=== PATIENT | female | born 1960 | race Caucasian/White ===

== ENCOUNTER 2022-02-15 13:45 | Inpatient (IN) ==
[2022-02-15] MEDS ORDERED: Iopamidol - 370 500 ML MLS IVP ONE (14:34)
[2022-02-15 15:48] LABS: Hemoglobin 12.3 g/dL (11.5-15.4); Mean Corpuscular Hemoglobin 26.7 pg (28.0-33.3); Mean Corpuscular Volume 88.9 fL (83.0-100.0); Mean Platelet Volume 10.3 fL (9.4-12.4); Nucleated Red Blood Cells 0.5 /100 WBC (0); Platelet Count 346 K/mcL (140-400); Red Blood Count 4.61 M/mcL (3.82-4.97); Red Cell Distribution Width 14.4 % (11.5-14.5); White Blood Count 6.5 K/mcL (4.3-11.1)
[2022-02-15 15:59] LABS: Alanine Aminotransferase 38 Units/L (7-52); Albumin 4.1 g/dL (3.5-5.7); Albumin/Globulin Ratio 1.2 (1.1-2.2); Alkaline Phosphatase 82 Units/L (34-104); Aspartate Amino Transferase 27 Units/L (13-39); BUN/Creatinine Ratio 19 (6-26); Bilirubin,Total 0.4 mg/dL (0.3-1.0); Blood Urea Nitrogen 14 mg/dL (8-23); Calcium 9.6 mg/dL (8.6-10.3); Carbon Dioxide 27 mEq/L (23-29); Chloride 106 mEq/L (98-107); Globulin 3.4 g/dL (2.4-3.5); Glucose 97 mg/dL (70-105); Osmolality,Calculated 290 (280-300); Sodium 140 mEq/L (136-145); Total Protein 7.5 g/dL (6.4-8.9)
[2022-02-15 16:34] LABS: Monocytes # 0.7 K/mcL (0.0-1.3); Neutrophils # 2.6 K/mcL (1.6-8.9)
[2022-02-15] MEDS ORDERED: Vancomycin 1,500 MG/265 ML IV.SOLN IVPB ONE (17:19)
[2022-02-15] MEDS ORDERED: Piperacillin/Tazobactam 3.375 GM in 0.9 % Sodium Chloride Mini Bag 100 ML IVPB ONE (17:19)
[2022-02-15] MEDS ORDERED: Ipratropium/Albuterol Neb 3 ML IH PRN (17:57)
[2022-02-15] MEDS ORDERED: Ondansetron 4 MG/2 ML VIAL IVP PRN (17:58)
[2022-02-15] MEDS ORDERED: Naloxone 0.4 MG/ML INJ IVP PRN (17:58)
[2022-02-16] MEDS: Piperacillin/Tazobactam 3.375 GM in 0.9 % Sodium Chloride Mini Bag 100 ML IVPB SCH ×3 (00:46→22:32)
[2022-02-16 03:49] LABS: Hemoglobin 10.9 g/dL (11.5-15.4); Mean Corpuscular HGB Conc 31.1 g/dL (31.6-35.5); Mean Corpuscular Hemoglobin 27.5 pg (28.0-33.3); Mean Corpuscular Volume 88.4 fL (83.0-100.0); Nucleated Red Blood Cells 0.6 /100 WBC (0); Platelet Count 297 K/mcL (140-400); Red Blood Count 3.96 M/mcL (3.82-4.97); Red Cell Distribution Width 14.5 % (11.5-14.5); White Blood Count 7.2 K/mcL (4.3-11.1)
[2022-02-16 03:58] LABS: Calcium 8.8 mg/dL (8.6-10.3); Magnesium 2.1 mg/dL (1.6-2.6); Potassium 3.9 mEq/L (3.5-5.1)
[2022-02-16 05:19] LABS: Lymphocytes # 1.2 K/mcL (0.6-4.6); Monocytes # 0.9 K/mcL (0.0-1.3); Neutrophils # 5.2 K/mcL (1.6-8.9)
[2022-02-16 05:20] LABS: Platelet Estimate Normal (Normal)
[2022-02-16] MEDS ORDERED: Vancomycin 1,500 MG/265 ML IV.SOLN IVPB SCH (06:00)
[2022-02-16] MEDS: *HR* Heparin 5,000 UNIT/ML VIAL SQ SCH ×3 (06:12→22:32)
[2022-02-16] MEDS ORDERED: Sacubitril/Valsartan 49/51 MG 1 TABLET PO SCH (09:00)
[2022-02-16] MEDS ORDERED: Metoprolol XL (24 HR) Succ 25 MG TAB.ER.24H PO SCH ×2 (09:00)
[2022-02-16] MEDS ORDERED: Aspirin 81 MG TAB.CHEW PO SCH (09:00)
[2022-02-16] MEDS ORDERED: Spironolactone 25 MG TABLET PO SCH (09:30)
[2022-02-16] MEDS ORDERED: Lidocaine -MPF 2% 5 ML VIAL ONE (16:47)
[2022-02-16] MEDS ORDERED: *HR* FentaNYL (PF) 100 MCG/2 ML VIAL ONE (16:50)
[2022-02-16] MEDS ORDERED: Ketamine HCL *QUVA* 50mg (1mL) SYRINGE ONE (17:20)
[2022-02-16] MEDS ORDERED: Naloxone 0.4 MG/ML INJ IVP PRN (18:03)
[2022-02-16] MEDS ORDERED: Ondansetron 4 MG/2 ML VIAL IVP PRN (18:03)
[2022-02-16] MEDS ORDERED: Ipratropium/Albuterol Neb 3 ML IH PRN (18:03)
[2022-02-16] MEDS: *HR* OxyCODONE/APAP 5/325 TABLET PO PRN ×2 (18:15→22:41)
[2022-02-16] MEDS: Metoprolol XL (24 HR) Succ 25 MG TAB.ER.24H PO SCH (20:12)
[2022-02-16] MEDS: Sacubitril/Valsartan 49/51 MG 1 TABLET PO SCH (20:12)
[2022-02-16] MEDS ORDERED: Piperacillin/Tazobactam 3.375 GM in 0.9 % Sodium Chloride Mini Bag 100 ML IVPB SCH (22:00)
[2022-02-17] MEDS: *HR* OxyCODONE/APAP 5/325 TABLET PO PRN ×3 (04:32→16:20)
[2022-02-17] MEDS: Piperacillin/Tazobactam 3.375 GM in 0.9 % Sodium Chloride Mini Bag 100 ML IVPB SCH ×3 (05:52→22:30)
[2022-02-17] MEDS: *HR* Heparin 5,000 UNIT/ML VIAL SQ SCH ×3 (05:53→22:31)
[2022-02-17] MEDS: Vancomycin 1,500 MG/265 ML IV.SOLN IVPB SCH (05:53)
[2022-02-17] MEDS ORDERED: Vancomycin 1,500 MG/265 ML IV.SOLN IVPB SCH (06:00)
[2022-02-17] MEDS: Spironolactone 25 MG TABLET PO SCH (08:41)
[2022-02-17] MEDS: Sacubitril/Valsartan 49/51 MG 1 TABLET PO SCH ×2 (08:42→19:58)
[2022-02-17] MEDS: Aspirin 81 MG TAB.CHEW PO SCH (08:42)
[2022-02-17] MEDS: Metoprolol XL (24 HR) Succ 25 MG TAB.ER.24H PO SCH ×2 (08:42→19:59)
[2022-02-17 09:25] LABS: Hematocrit 36.3 % (35.3-44.9); Hemoglobin 11.1 g/dL (11.5-15.4); Mean Corpuscular HGB Conc 30.6 g/dL (31.6-35.5); Mean Corpuscular Volume 88.3 fL (83.0-100.0); Mean Platelet Volume 10.1 fL (9.4-12.4); Nucleated Red Blood Cells 0.2 /100 WBC (0); Platelet Count 274 K/mcL (140-400); Red Blood Count 4.11 M/mcL (3.82-4.97); Red Cell Distribution Width 14.5 % (11.5-14.5); White Blood Count 8.8 K/mcL (4.3-11.1)
[2022-02-17 09:39] LABS: Calcium 9.2 mg/dL (8.6-10.3); Potassium 4.4 mEq/L (3.5-5.1)
[2022-02-17 10:38] LABS: Lymphocytes # 1.6 K/mcL (0.6-4.6); Monocytes # 1.8 K/mcL (0.0-1.3); Neutrophils # 4.9 K/mcL (1.6-8.9); Platelet Estimate Normal (Normal)
[2022-02-18] MEDS: Piperacillin/Tazobactam 3.375 GM in 0.9 % Sodium Chloride Mini Bag 100 ML IVPB SCH ×3 (06:22→20:30)
[2022-02-18] MEDS: *HR* Heparin 5,000 UNIT/ML VIAL SQ SCH ×3 (06:22→20:38)
[2022-02-18] MEDS: Vancomycin 1,500 MG/265 ML IV.SOLN IVPB SCH (06:29)
[2022-02-18] MEDS ORDERED: Vancomycin 1,750 MG/517.5 ML IV.SOLN IVPB SCH (08:00)
[2022-02-18] MEDS: Spironolactone 25 MG TABLET PO SCH (08:08)
[2022-02-18] MEDS: Sacubitril/Valsartan 49/51 MG 1 TABLET PO SCH ×2 (08:08→20:25)
[2022-02-18] MEDS: Metoprolol XL (24 HR) Succ 25 MG TAB.ER.24H PO SCH ×2 (08:08→20:29)
[2022-02-18] MEDS: Aspirin 81 MG TAB.CHEW PO SCH (08:08)
[2022-02-18] MEDS: Lactobacillus 1 EACH CAP.SPRINK PO SCH ×2 (11:36→20:25)
[2022-02-18] MEDS: *HR* OxyCODONE/APAP 5/325 TABLET PO PRN ×2 (11:36→16:58)
[2022-02-19] MEDS: *HR* OxyCODONE/APAP 5/325 TABLET PO PRN ×2 (04:57→12:16)
[2022-02-19] MEDS: *HR* Heparin 5,000 UNIT/ML VIAL SQ SCH (06:16)
[2022-02-19] MEDS: Piperacillin/Tazobactam 3.375 GM in 0.9 % Sodium Chloride Mini Bag 100 ML IVPB SCH (06:19)
[2022-02-19] MEDS ORDERED: Vancomycin 2,000 MG/520 ML IV.SOLN IVPB SCH (08:00)
[2022-02-19] MEDS: Spironolactone 25 MG TABLET PO SCH (08:05)
[2022-02-19] MEDS: Metoprolol XL (24 HR) Succ 25 MG TAB.ER.24H PO SCH (08:05)
[2022-02-19] MEDS: Lactobacillus 1 EACH CAP.SPRINK PO SCH (08:05)
[2022-02-19] MEDS: Aspirin 81 MG TAB.CHEW PO SCH (08:05)
[2022-02-19] MEDS: Sacubitril/Valsartan 49/51 MG 1 TABLET PO SCH (08:06)
[2022-02-19 11:15] VITALS: BP 96/62; PULSE 81; TEMP 98.1; O2SAT 93
[2022-02-19] MEDS ORDERED: Amoxicillin 500 MG CAPSULE PO SCH (15:00)
[2022-02-19] MEDS ORDERED: Doxycycline 100 MG CAPSULE PO SCH (21:00)
== END 2022-02-19 16:25 | disposition home or self-care (01) | DRG 721 ==
LOC: EMEROOARM 13:45 → 3ANU 13:45 → SUATTDRO 19:47 → 3ANU 20:15
PROVIDERS: ADMIT Student in an Organized Health Care Education/Training Program; ATTEND Internal Medicine